=== PATIENT | male | born 1990 | race Two or more races ===

== ENCOUNTER 2025-05-21 12:49 | Observation (INO) ==
[2025-05-21 13:04] VITALS: BMI 33.7
[2025-05-21 13:19] LABS: BLOOD/HEMOGLOBIN,URINE 1+ (NEGATIVE); LEUKOCYTE ESTERASE ,URINE NEGATIVE (NEGATIVE); NITRITES,URINE NEGATIVE (NEGATIVE)
[2025-05-21 13:22] LABS: MEAN PLATELET VOLUME 9.9 fL (7.4-11.0); RED CELL DISTRIBUTION WIDTH 13.0 % (11.6-16.5)
--- NOTE | 2025-05-21 13:29 | DR.HTN ---
HPI Time Seen Time Seen by Provider: 05/21/25 13:25 Primary Care Physician Primary Care Physician: nfd Complaints Chief Complaint Doctors Comments: Patient states he has been weak tired excessive urination over the last couple days. He states is not currently on any medications.The patient does not have a primary care provider. Chief Complaint:: Pt ambulatory to ED; pt states "I feel bad for a few days; I feel tired and weak; I drink alot of water and I pee alot". Pt denies any medical hx or that he is prescribed any medications; he doesn't have a PCP. Pt c/o "pressure in my head". Pt c/o exertional SOB that is better with rest. Self Treatment fo Chief Complaint: none Source History Provided: Patient Mode of Arrival Mode of Arrival: Ambulatory Timing Onset of Chief Complaint: 05/18/25 Severity What was the maximum recorded B/P?: 146/107 Context Treatment of HTN Prior to Arrival: No Rx for HTN meds Associated Signs and Symptoms HTN Associated Signs and Symptoms: Shortness of Breath PMH PMH Past Medical History: No Past Surgical History: No Surgical History: No History Family History History of Family Medical Conditions: No Social History Does any household member use tobacco: No Alcohol Use: Occasionally Do you use any recreational Drugs:: No Lives With: Spouse and Family Lives Where: Home Infectious screening In the last 2 months have you had wt loss of >10#?: NO Have you had fever, night sweats or hemotysis?: No Have you traveled outside the country in the last 6 months?: No Isolation: Standard ROS Review of Systems Constitutional: Fatigue and Other (This patient complaining of polyuria polydipsia and polyphasia and some weight lossAnd just feeling weak) Eyes: No Symptoms Reported ENTM: No Symptoms Reported Respiratoy: No Symptoms Reported Cardiovascular: No Symptoms Reported Gastrointestinal/Abdominal: No Symptoms Reported Genitourinary: Frequency Neurological: No Symptoms Reported Musculoskeletal: No Symptoms Reported Integumentary: No Symptoms Reported Hematologic/Lymphatic: No Symptoms Reported Endocrine: No Symptoms Reported Psychiatric: No Symptoms Reported All Other Systems: Reviewed and Negative PE Vital Signs Vitals: Vital Signs Pulse Rate 86 Pulse Rate 92 Pulse Rate 91 Pulse Rate 94 Pulse Rate 90 Pulse Rate 91 Pulse Rate 87 Pulse Rate 88 Pulse Rate 86 Pulse Rate 95 Pulse Rate 94 Pulse Rate 96 Pulse Rate 95 Pulse Rate 94 Pulse Rate 94 Pulse Rate 99 Pulse Rate 104 Pulse Rate 106 Pulse Rate 102 Blood Pressure 134/74 Blood Pressure 124/74 Blood Pressure 124/79 Blood Pressure 117/82 Blood Pressure 123/76 Blood Pressure 126/70 Blood Pressure 124/62 Blood Pressure 126/74 Blood Pressure 126/79 Blood Pressure 117/64 O2 Sat by Pulse Oximetry 97 O2 Sat by Pulse Oximetry 98 O2 Sat by Pulse Oximetry 97 O2 Sat by Pulse Oximetry 99 O2 Sat by Pulse Oximetry 98 O2 Sat by Pulse Oximetry 97 O2 Sat by Pulse Oximetry 98 O2 Sat by Pulse Oximetry 99 O2 Sat by Pulse Oximetry 98 O2 Sat by Pulse Oximetry 99 O2 Sat by Pulse Oximetry 98 O2 Sat by Pulse Oximetry 97 O2 Sat by Pulse Oximetry 96 O2 Sat by Pulse Oximetry 97 O2 Sat by Pulse Oximetry 96 O2 Sat by Pulse Oximetry 98 O2 Sat by Pulse Oximetry 97 O2 Sat by Pulse Oximetry 97 O2 Sat by Pulse Oximetry 96 General Limitations: No Limitations General Appearance: In Distress (moderate distress) Head Head Exam: Normal Inspection, Atraumatic and Normocephalic Eyes Eye exam: Normal Appearance, PERRL and EOMI ENT ENT Exam: Normal Oropharynx Neck Neck Exam: Normal Inspection, Full ROM and Trachea Midline Chest Chest Inspection: Normal Inspection and Symmetric Chest Wall Rise Respiratory Respiratory Exam: Normal Lung Sounds Bilat Respiratory Exam: Bilateral: Clear to Auscultation Cardiovascular Cardiovascular Exam: Regular Rate and Normal Rhythm Abdominal Exam Abdominal Exam: Normal Inspection, Normal Bowel Sounds and Soft Extremities Extremities Exam: Normal Inspection Back Back Exam: Normal Inspection and Full ROM Neurologic Neurological Exam: Alert, Oriented X3 and CN II-XII Intact Patient Oriented To: Person, Place and Time Speech: Fluid Speech Cranial Nerve Exam: EOM Function (II, III, IV, ): Normal Motor Strength - LUE: 4/5 Motor Strength - RUE: 4/5 Motor Strength - LLE: 4/5 Motor Strength - RLE: 4/5 Psychiatric Psychiatric Exam: Normal Affect Skin Skin Exam: Warm, Dry and Intact MDM Differential Diagnosis Differential Diagnosis Comment: IDDM,Diabetic Ketoacidosis COURSE Treatment Treatment: This patient main relative stable during the ER evaluation. We did do initial blood work on this patient and his blood sugar was 420 we did a serum acetone level which was small initially we did a urinalysis that showed plus for glucose +3 ketones +1 blood and +2 protein.The patient was initially given a 1 L bolus of normal saline and he was given 5 units of [place] are and the blood sugar came down initially to 305 after that and we continued given fluids he got another liter bolus of normal saline we will continue to monitor his fluids we did check another serum acetone probably after the 2 L of normal saline and he still was small levels of serum acetone his initial hemoglobin A1c was 11.5.The patient was told results of these labs and that he was at this time considered to be in diabetic ketoacidosis and probably would be needing some treatment in the ER initially and to be referred to observation for further for further treatment. 2023 we did speak to Dr. Segal also about this patient and he agreed to have the patient be admitted to him for this diagnosis.Dr. Parikh said just keep the patient on normal saline 125 cc an hour and do a sliding scale insulin.This patient was told of the intent to admit and was agreeable to the admission. ROR Labs Reviewed Laboratory Results Reviewed?: Yes 05/21/25 13:07 05/21/25 13:07 Laboratory: WBC 8.9 X10^3/uL (3.6-10.0) 05/21/25 13:07 RBC 5.56 X10^6/uL (4.7-6.0) 05/21/25 13:07 Hgb 16.9 g/dL (13.5-18.0) 05/21/25 13:07 Hct 47.3 % (42.0-54.0) 05/21/25 13:07 MCV 85.1 fL (80.0-100.0) 05/21/25 13:07 MCH 30.4 pg (27.0-34.0) 05/21/25 13:07 MCHC 35.7 g/dL (33.0-35.0) H 05/21/25 13:07 RDW 13.0 % (11.6-16.5) 05/21/25 13:07 Plt Count 185 X10^3/uL (150.0-450.0) 05/21/25 13:07 MPV 9.9 fL (7.4-11.0) 05/21/25 13:07 Neut % (Auto) 65.6 % (42.0-75.0) 05/21/25 13:07 Lymph % (Auto) 25.3 % (21.0-51.0) 05/21/25 13:07 [place] % (Auto) 6.1 % (0.0-13.0) 05/21/25 13:07 Eos % (Auto) 1.8 % (0.9-2.9) 05/21/25 13:07 Baso % (Auto) 1.2 % (0.2-1.0) H 05/21/25 13:07 Neut # (Auto) 5.8 x10^3/uL (2.2-4.8) H 05/21/25 13:07 Lymph # (Auto) 2.2 X10^3/uL (1.3-2.9) 05/21/25 13:07 [place] # (Auto) 0.5 x10^3/uL (0.3-0.8) 05/21/25 13:07 Eos # (Auto) 0.2 x10^3/uL (0.0-0.2) 05/21/25 13:07 Baso # (Auto) 0.1 X10^3/uL (0.0-0.1) 05/21/25 13:07 Absolute Nucleated RBC 0.1 /100WBC 05/21/25 13:07 Sodium 136 mmol/L (136-145) 05/21/25 13:07 Corrected Sodium 144 mmol/L (136-145) 05/21/25 13:07 Potassium 3.8 mmol/L (3.5-5.1) 05/21/25 13:07 Chloride 99 mmol/L (98-107) 05/21/25 13:07 Carbon Dioxide 19.8 mmol/L (21-32) L 05/21/25 13:07 BUN 11 mg/dL (7-18) 05/21/25 13:07 Creatinine 0.82 mg/dL (0.70-1.30) 05/21/25 13:07 Est GFR (MDRD) Af Amer > 60 (>60) 05/21/25 13:07 Est GFR (MDRD) Non-Af > 60 (>60) 05/21/25 13:07 Glucose 420 mg/dL (65-99) H 05/21/25 13:07 POC Glucose (mg/dL) 257 mg/dL (65-99) H 05/21/25 17:18 Hemoglobin A1c 11.5 % 05/21/25 13:07 Calcium 8.7 mg/dL (8.5-10.1) 05/21/25 13:07 Corrected Calcium TNP 05/21/25 13:07 Total Bilirubin 1.00 mg/dL (0.2-1.0) 05/21/25 13:07 AST 75 Units/L (15-37) H 05/21/25 13:07 ALT 197 Units/L (12-78) H 05/21/25 13:07 Alkaline Phosphatase 223 Units/L (46-116) H 05/21/25 13:07 Total Protein 7.5 g/dL (6.4-8.2) 05/21/25 13:07 Albumin 4.4 g/dL (3.4-5.0) 05/21/25 13:07 Globulin 3.1 g/dL (2.5-4.5) 05/21/25 13:07 Albumin/Globulin Ratio 1.4 Ratio (1.1-2.1) 05/21/25 13:07 Specimen Type Clean catch urine 05/21/25 13:02 Urine Color Yellow (YELLOW) 05/21/25 13:02 Urine Appearance Clear (CLEAR) 05/21/25 13:02 Urine pH 5.0 (5.0 - 8.0) 05/21/25 13:02 Ur Specific [place] 1.015 (1.000-1.030) 05/21/25 13:02 Urine Protein 2+ (NEGATIVE) 05/21/25 13:02 Urine Glucose (UA) 4+ (NEGATIVE) 05/21/25 13:02 Urine Ketones 3+ (NEGATIVE) 05/21/25 13:02 Urine Blood 1+ (NEGATIVE) 05/21/25 13:02 Urine Nitrite Negative (NEGATIVE) 05/21/25 13:02 Urine Bilirubin Negative (NEGATIVE) 05/21/25 13:02 Urine Urobilinogen Normal (NORMAL) 05/21/25 13:02 Ur Leukocyte Esterase Negative (NEGATIVE) 05/21/25 13:02 Urine RBC 0-2 /HPF (0-3) 05/21/25 13:02 Urine WBC 0-2 /HPF (0-5) 05/21/25 13:02 Ur Squamous Epith Cells Rare /HPF (NEGATIVE) 05/21/25 13:02 Urine Bacteria Negative /HPF (NEGATIVE) 05/21/25 13:02 Ur Culture Indicated? No/not indicated 05/21/25 13:02 Acetone, Semi-Quant Small (NEGATIVE) H 05/21/25 17:35 Opioid Opioid Risk Tool Age (Pavel box if 16-45): Yes History of Preadolescent Sexual Abuse: No Total: 1 Total Score Risk Category: Low Risk Copyright: Thaddeus GAYTAN predicting aberrant behaviors Discharge Plan Diagnosis Discharge Problem: Diabetic keto-acidosis Discharge Plan Patient Disposition: ADMITTED INPATIENT Condition: Stable Prescriptions: No Action [facility] Concerns: Post Hospitalization: new medications and changes needed to prevent readmission or further decline. Pt educated and given instructions on all concerns. Plan of Treatment: Continue with present treatment and follow up plan. Pt is to keep follow up appointment as instructed and take medications as ordered. Orders to Discharge Patient Discharge Orders: Transfer (Routine); Ordered 05/21/25 Ordered By: Cy Steven Follow ups/Referrals Follow ups/Referrals: NFD,None [Primary Care Provider] - 3 days Instructions Instructions: Insulin Treatment for Diabetes Mellitus, Diabetes Mellitus and Skin Care, Type 2 Diabetes Mellitus, Self-Care, Adult, [id number], Regular Insulin injection Stand Alone Forms: Find Help Web Site, Post Hospital Follow Up Care Print Language: [place]
[2025-05-21 13:31] LABS: COR NA(FOR HYPERGLY) 144 mmol/L (136-145); CREATININE 0.82 mg/dL (0.70-1.30); eGFR NON BLACK RACES > 60 (>60)
[2025-05-21] MEDS ORDERED: NS 1,000 ML IV 1,000 ML ONE (13:32)
[2025-05-21 13:35] LABS: APPEARANCE,URINE CLEAR (CLEAR); SQUAMOUS EPITHELIAL CELL,UR RARE /HPF (NEGATIVE)
[2025-05-21] MEDS: NS 1,000 ML IV 1,000 ML IV ONE ×2 (13:36→16:11)
[2025-05-21] MEDS: NovoLIN R (or HumuLIN R) IV ONE (14:40)
[2025-05-21] MEDS: NS 1,000 ML IV 1,000 ML IV SCH (23:04)
[2025-05-22] MEDS: NovoLIN R (or HumuLIN R) SUBCUT PRN (05:43)
[2025-05-22 06:01] LABS: MEAN PLATELET VOLUME 10.5 fL (7.4-11.0); RED CELL DISTRIBUTION WIDTH 12.9 % (11.6-16.5)
[2025-05-22 06:12] LABS: COR NA(FOR HYPERGLY) 144 mmol/L (136-145); CREATININE 0.69 mg/dL (0.70-1.30); eGFR NON BLACK RACES > 60 (>60)
[2025-05-22] MEDS: OMNIPAQUE 350 mg/mL 100 mL BTL IVP NR (08:07)
[2025-05-22] MEDS: ACTOS PO SCH (08:23)
--- NOTE | 2025-05-22 08:25 | CT ---
EXAMINATION: ABDCMEN/PELVIS WITH CON HISTORY: acute hepatitis; COMPARISON: CT abdomen 01/20/2024 TECHNIQUE: Contiguous axial CT images of the abdomen and pelvis following intravenous contrast. Images reviewed in the axial imaging plane with reformatted sagittal and coronal images.The above CT scan was done with automated exposure control and the mA and kV was adjusted to obtain quality images according to patient size. FINDINGS: The liver measures 24 by 18 by 21 cm. There is a nonspecific subtle region of heterogeneous enhancement measuring 2 x 1.7 x 1.8 cm within the liver adjacent to the gallbladder fossa. Gallbladder mildly distended. No bile duct dilatation. Pancreas, spleen, adrenal glands appear intact. Abdominal aorta tapers normally. Kidneys normal size and position. No hydronephrosis. Small and large bowels are normal caliber. Details limited by lack of oral contrast. Occasional colonic diverticuli. Mild amount of bowel-gas and feces. No evidence of appendicitis. Stomach contains a small amount of air in fluid. No ascites. Urinary bladder mildly distended with urine. Prostate gland measures 5 cm transverse dimension. Seminal vesicles appear intact. Osseous structures appear intact. Pulmonary bases are clear. IMPRESSION: Mild hepatomegaly. Nonspecific subtle region of heterogeneous enhancement within the liver adjacent to the gallbladder fossa. Recommend follow-up MRI of the abdomen without and with IV contrast following the hepatic mass imaging protocol. THIS IS AN ELECTRONICALLY VERIFIED FINAL REPORT 05/22/2025 8:22 AM - Electronically signed by Sima Britton MD
--- NOTE | 2025-05-22 15:39 | DR.H&P ---
H&P History & Physical for Day of: H&P Date: 05/22/25 Chief Complaint Chief Complaint: blurry vision History of Present Illness History of Present Illness: Patient presented to the ER yesterday with months of increased thirst and increased urination. Has not been feeling well for a while. No family history of diabetes and denies blurry vision, nausea, vomiting, or diarrhea over the last couple of days. ER workup was consistent with new onset diabetes and hyperglycemia. Ketones in urine and and blood. Anion gap was present but no blood gas obtained. Currently reports he is doing better this morning. He is tolerating a diet. Did had elevated liver enzymes in the ER with CAT scan ordered this morning. CT findings concerning for liver mass adjacent to the gallbladder. No pancreatitis bladder was mildly distended without inflammation or infection. PMH: Denies PSH: Denies Family history: Denies, reports all first-degree relatives are living and healthy. Social: , local resident. Denies tobacco or illicit drug use. Admits to daily alcohol use. ROS: 12 point ROS negative except per above. PE: Well-developed, well-nourished, obese male in no acute distress. Head NCAT, EOMI, hearing intact conversation. Heart regular rate and rhythm, lungs are clear, speech is strong, bowel sounds present. Belly is soft and nontender. No jaundice or rash/bruising appreciated. Moves all extremities well with no edema of his face, hands, or feet. Past Medical History Additional Medical History: denies Past Surgical History Surgical History: No History Additional Surgical History: denies Social History Does patient currently use any type of tobacco product: No Type of Tobacco Use: None Does any household member use tobacco: No Alcohol Use: DAILY Drug Use: None Medications Home Medications: Home Medications Medication Instructions Recorded Confirmed Type NK 05/21/25 05/21/25 History Allergies Allergies Allergy/AdvReac Type Severity Reaction Status Date / Time No Known Allergies Allergy Verified 05/21/25 13:13 Labs 05/22/25 05:20 05/22/25 05:20 Labs: Laboratory WBC 6.0 X10^3/uL (3.6-10.0) 05/22/25 05:20 RBC 4.82 X10^6/uL (4.7-6.0) 05/22/25 05:20 Hgb 14.3 g/dL (13.5-18.0) D 05/22/25 05:20 Hct 41.4 % (42.0-54.0) L 05/22/25 05:20 MCV 85.9 fL (80.0-100.0) 05/22/25 05:20 MCH 29.6 pg (27.0-34.0) 05/22/25 05:20 MCHC 34.4 g/dL (33.0-35.0) 05/22/25 05:20 RDW 12.9 % (11.6-16.5) 05/22/25 05:20 Plt Count 160 X10^3/uL (150.0-450.0) 05/22/25 05:20 MPV 10.5 fL (7.4-11.0) 05/22/25 05:20 Neut % (Auto) 47.7 % (42.0-75.0) 05/22/25 05:20 Lymph % (Auto) 39.2 % (21.0-51.0) 05/22/25 05:20 [place] % (Auto) 8.2 % (0.0-13.0) 05/22/25 05:20 Eos % (Auto) 4.1 % (0.9-2.9) H 05/22/25 05:20 Baso % (Auto) 0.8 % (0.2-1.0) 05/22/25 05:20 Neut # (Auto) 2.9 x10^3/uL (2.2-4.8) 05/22/25 05:20 Lymph # (Auto) 2.4 X10^3/uL (1.3-2.9) 05/22/25 05:20 [place] # (Auto) 0.5 x10^3/uL (0.3-0.8) 05/22/25 05:20 Eos # (Auto) 0.2 x10^3/uL (0.0-0.2) 05/22/25 05:20 Baso # (Auto) 0.1 X10^3/uL (0.0-0.1) 05/22/25 05:20 Absolute Nucleated RBC 0.0 /100WBC 05/22/25 05:20 Sodium 139 mmol/L (136-145) 05/22/25 05:20 Corrected Sodium 144 mmol/L (136-145) 05/22/25 05:20 Potassium 3.7 mmol/L (3.5-5.1) 05/22/25 05:20 Chloride 105 mmol/L (98-107) 05/22/25 05:20 Carbon Dioxide 21.7 mmol/L (21-32) 05/22/25 05:20 BUN 10 mg/dL (7-18) 05/22/25 05:20 Creatinine 0.69 mg/dL (0.70-1.30) L 05/22/25 05:20 Est GFR (MDRD) Af Amer > 60 (>60) 05/22/25 05:20 Est GFR (MDRD) Non-Af > 60 (>60) 05/22/25 05:20 Glucose 306 mg/dL (65-99) H 05/22/25 05:20 POC Glucose (mg/dL) 315 mg/dL (65-99) H 05/22/25 05:15 Hemoglobin A1c 11.5 % 05/21/25 13:07 Calcium 8.3 mg/dL (8.5-10.1) L 05/22/25 05:20 Corrected Calcium TNP 05/22/25 05:20 Total Bilirubin 0.80 mg/dL (0.2-1.0) 05/22/25 05:20 AST 60 Units/L (15-37) H 05/22/25 05:20 ALT 180 Units/L (12-78) H 05/22/25 05:20 Alkaline Phosphatase 146 Units/L (46-116) H 05/22/25 05:20 Total Protein 6.2 g/dL (6.4-8.2) L 05/22/25 05:20 Albumin 3.5 g/dL (3.4-5.0) 05/22/25 05:20 Globulin 2.7 g/dL (2.5-4.5) 05/22/25 05:20 Albumin/Globulin Ratio 1.3 Ratio (1.1-2.1) 05/22/25 05:20 Specimen Type Clean catch urine 05/21/25 13:02 Urine Color Yellow (YELLOW) 05/21/25 13:02 Urine Appearance Clear (CLEAR) 05/21/25 13:02 Urine pH 5.0 (5.0 - 8.0) 05/21/25 13:02 Ur Specific [place] 1.015 (1.000-1.030) 05/21/25 13:02 Urine Protein 2+ (NEGATIVE) 05/21/25 13:02 Urine Glucose (UA) 4+ (NEGATIVE) 05/21/25 13:02 Urine Ketones 3+ (NEGATIVE) 05/21/25 13:02 Urine Blood 1+ (NEGATIVE) 05/21/25 13:02 Urine Nitrite Negative (NEGATIVE) 05/21/25 13:02 Urine Bilirubin Negative (NEGATIVE) 05/21/25 13:02 Urine Urobilinogen Normal (NORMAL) 05/21/25 13:02 Ur Leukocyte Esterase Negative (NEGATIVE) 05/21/25 13:02 Urine RBC 0-2 /HPF (0-3) 05/21/25 13:02 Urine WBC 0-2 /HPF (0-5) 05/21/25 13:02 Ur Squamous Epith Cells Rare /HPF (NEGATIVE) 05/21/25 13:02 Urine Bacteria Negative /HPF (NEGATIVE) 05/21/25 13:02 Ur Culture Indicated? No/not indicated 05/21/25 13:02 Acetone, Semi-Quant Small (NEGATIVE) H 05/21/25 22:25 Physical Exam Vital Signs: Vital Signs Temperature 98.0 F Temperature 98.1 F Pulse Rate [Left] 75 Pulse Rate [Left] 82 Respiratory Rate 18 Respiratory Rate 18 Blood Pressure [Left Arm] 104/76 Blood Pressure [Left Arm] 134/80 O2 Sat by Pulse Oximetry 98 O2 Sat by Pulse Oximetry 98 Assessment/Plan (1) Diabetic keto-acidosis: Qualifiers: Diabetes mellitus complication detail: without coma Diabetes mellitus type: type 2 Qualified Code(s): E11.10 - Type 2 diabetes mellitus with ketoacidosis without coma Narrative Support Text: Monitor labs closely. Continue sliding scale insulin and IV fluids. Start glipizide and Actos. Need to get an MRI with and without contrast of the abdomen to look more closely at the liver. Status: Acute (2) Newly diagnosed diabetes: Status: Acute (3) Gastroenteritis: Status: Acute (4) Mixed hyperlipidemia: Status: Acute (5) Type 2 diabetes mellitus with hyperglycemia: Qualifiers: Diabetes mellitus skilled nursing insulin use: without skilled nursing use Q ualified Code(s): E11.65 - Type 2 diabetes mellitus with hyperglycemia Status: Acute (6) Acute hepatitis: Status: Acute (7) Liver mass: Status: Acute
[2025-05-22] MEDS: GLUCOTROL PO SCH (17:02)
[2025-05-22] MEDS: SNACK - Diabetic Appropriate PO SCH ×2 (20:34)
--- NOTE | 2025-05-22 22:40 | RAD ---
EXAM: CHEST HISTORY: SOB on exertion; COMPARISON: None. TECHNIQUE: Frontal view of the chest was submitted for interpretation. FINDINGS: No evidence for acute infiltrates, pleural effusion, or pneumothorax. Heart size and pulmonary vasculature are within normal limits. IMPRESSION: No evidence of acute cardiopulmonary pathology. THIS IS AN ELECTRONICALLY VERIFIED FINAL REPORT 05/22/2025 10:37 PM - Electronically signed by Cliff Lomax DO
[2025-05-23 07:05] LABS: MEAN PLATELET VOLUME 10.1 fL (7.4-11.0); RED CELL DISTRIBUTION WIDTH 12.9 % (11.6-16.5)
[2025-05-23] MEDS: NS 500 ML IV 500 ML IV ONE (07:06)
[2025-05-23] MEDS: OMNIPAQUE 350 mg/mL 100 mL BTL 100 ML ONE (07:07)
[2025-05-23] MEDS: NS 100 ML IV 100 ML ONE (07:07)
[2025-05-23 07:17] LABS: COR NA(FOR HYPERGLY) 139 mmol/L (136-145); CREATININE 0.54 mg/dL (0.70-1.30); eGFR NON BLACK RACES > 60 (>60)
--- NOTE | 2025-05-23 13:32 | NOTE.SOAP ---
Soap Note Note for Day of Date of Exam: 05/23/25 Subjective Data Subjective Data: No acute events overnight. Vitals and labs overall stable. Sugars stable. Patient is willing to stay for an MRI tomorrow. Objective Data Objective Data: Well-developed, well-nourished, obese male in no acute distress. Head NCAT. Heart regular rate and rhythm. Belly is soft and nontender with bowel sounds present. No jaundice or scleral icterus. Lungs are clear with strong speech. Assessment Assessment: New DM2 with hyperglycemia Liver mass Hepatic steatosis Simple obesity Plan Plan: MRI tomorrow. Increase glipizide. Continue SSI. Consider adding on metformin after MRI. Likely need to discharge with short acting insulin for as needed use.
[2025-05-23] MEDS: GLUCOTROL PO SCH (16:23)
[2025-05-24 06:02] LABS: MEAN PLATELET VOLUME 10.5 fL (7.4-11.0); RED CELL DISTRIBUTION WIDTH 13.1 % (11.6-16.5)
[2025-05-24 06:18] LABS: COR CA(FOR HYPOALB) 9.1 mg/dL (8.5-10.1); COR NA(FOR HYPERGLY) 142 mmol/L (136-145); CREATININE 0.55 mg/dL (0.70-1.30); eGFR NON BLACK RACES > 60 (>60)
--- NOTE | 2025-05-24 07:24 | PCM.DCPLAN ---
DISCHARGE SUMMARY Admission Date Date of Admission: 05/21/25 Discharge Date Discharge Date: 05/24/25 Admission Diagnoses (1) Diabetic keto-acidosis: Status: Acute (2) Newly diagnosed diabetes: Status: Acute (3) Gastroenteritis: Status: Acute (4) Mixed hyperlipidemia: Status: Acute (5) Type 2 diabetes mellitus with hyperglycemia: Status: Acute (6) Acute hepatitis: Status: Acute (7) Liver mass: Status: Ruled-out (8) Metabolic dysfunction-associated fatty liver disease (MAFLD): Status: Acute Discharge Medications Discharge Medications: Home Medication List NK 05/21/25 [History] Prescriptions: Hospital Course Vital Signs: Vital Signs Temperature 97.8 F Temperature 97.9 F Pulse Rate [Left] 74 Pulse Rate [Left] 72 Respiratory Rate 19 Respiratory Rate 21 Blood Pressure [Right Arm] 129/75 Blood Pressure [Right Arm] 135/79 O2 Sat by Pulse Oximetry 98 O2 Sat by Pulse Oximetry 98 Latest Lab Results: Laboratory Last Values WBC 6.0 X10^3/uL (3.6-10.0) 05/24/25 05:04 RBC 4.88 X10^6/uL (4.7-6.0) 05/24/25 05:04 Hgb 14.4 g/dL (13.5-18.0) 05/24/25 05:04 Hct 41.5 % (42.0-54.0) L 05/24/25 05:04 MCV 85.2 fL (80.0-100.0) 05/24/25 05:04 MCH 29.6 pg (27.0-34.0) 05/24/25 05:04 MCHC 34.8 g/dL (33.0-35.0) 05/24/25 05:04 RDW 13.1 % (11.6-16.5) 05/24/25 05:04 Plt Count 171 X10^3/uL (150.0-450.0) 05/24/25 05:04 MPV 10.5 fL (7.4-11.0) 05/24/25 05:04 Neut % (Auto) 51.0 % (42.0-75.0) 05/24/25 05:04 Lymph % (Auto) 33.8 % (21.0-51.0) 05/24/25 05:04 [place] % (Auto) 8.7 % (0.0-13.0) 05/24/25 05:04 Eos % (Auto) 5.8 % (0.9-2.9) H 05/24/25 05:04 Baso % (Auto) 0.7 % (0.2-1.0) 05/24/25 05:04 Neut # (Auto) 3.0 x10^3/uL (2.2-4.8) 05/24/25 05:04 Lymph # (Auto) 2.0 X10^3/uL (1.3-2.9) 05/24/25 05:04 [place] # (Auto) 0.5 x10^3/uL (0.3-0.8) 05/24/25 05:04 Eos # (Auto) 0.3 x10^3/uL (0.0-0.2) H 05/24/25 05:04 Baso # (Auto) 0.0 X10^3/uL (0.0-0.1) 05/24/25 05:04 Absolute Nucleated RBC 0.1 /100WBC 05/24/25 05:04 Sodium 139 mmol/L (136-145) 05/24/25 05:04 Corrected Sodium 142 mmol/L (136-145) 05/24/25 05:04 Potassium 3.7 mmol/L (3.5-5.1) 05/24/25 05:04 Chloride 104 mmol/L (98-107) 05/24/25 05:04 Carbon Dioxide 26.6 mmol/L (21-32) 05/24/25 05:04 BUN 9 mg/dL (7-18) 05/24/25 05:04 Creatinine 0.55 mg/dL (0.70-1.30) L 05/24/25 05:04 Est GFR (MDRD) Af Amer > 60 (>60) 05/24/25 05:04 Est GFR (MDRD) Non-Af > 60 (>60) 05/24/25 05:04 Glucose 226 mg/dL (65-99) H 05/24/25 05:04 POC Glucose (mg/dL) 226 mg/dL (65-99) H 05/24/25 05:13 Hemoglobin A1c 11.5 % 05/21/25 13:07 Calcium 8.5 mg/dL (8.5-10.1) 05/24/25 05:04 Corrected Calcium 9.1 mg/dL (8.5-10.1) 05/24/25 05:04 Magnesium 1.8 mg/dL (2.0-2.9) L 05/24/25 05:04 Total Bilirubin 0.70 mg/dL (0.2-1.0) 05/24/25 05:04 AST 57 Units/L (15-37) H 05/24/25 05:04 ALT 176 Units/L (12-78) H 05/24/25 05:04 Alkaline Phosphatase 122 Units/L (46-116) H 05/24/25 05:04 Total Protein 6.0 g/dL (6.4-8.2) L 05/24/25 05:04 Albumin 3.3 g/dL (3.4-5.0) L 05/24/25 05:04 Globulin 2.7 g/dL (2.5-4.5) 05/24/25 05:04 Albumin/Globulin Ratio 1.2 Ratio (1.1-2.1) 05/24/25 05:04 Specimen Type Clean catch urine 05/21/25 13:02 Urine Color Yellow (YELLOW) 05/21/25 13:02 Urine Appearance Clear (CLEAR) 05/21/25 13:02 Urine pH 5.0 (5.0 - 8.0) 05/21/25 13:02 Ur Specific [place] 1.015 (1.000-1.030) 05/21/25 13:02 Urine Protein 2+ (NEGATIVE) 05/21/25 13:02 Urine Glucose (UA) 4+ (NEGATIVE) 05/21/25 13:02 Urine Ketones 3+ (NEGATIVE) 05/21/25 13:02 Urine Blood 1+ (NEGATIVE) 05/21/25 13:02 Urine Nitrite Negative (NEGATIVE) 05/21/25 13:02 Urine Bilirubin Negative (NEGATIVE) 05/21/25 13:02 Urine Urobilinogen Normal (NORMAL) 05/21/25 13:02 Ur Leukocyte Esterase Negative (NEGATIVE) 05/21/25 13:02 Urine RBC 0-2 /HPF (0-3) 05/21/25 13:02 Urine WBC 0-2 /HPF (0-5) 05/21/25 13:02 Ur Squamous Epith Cells Rare /HPF (NEGATIVE) 05/21/25 13:02 Urine Bacteria Negative /HPF (NEGATIVE) 05/21/25 13:02 Ur Culture Indicated? No/not indicated 05/21/25 13:02 Acetone, Semi-Quant Small (NEGATIVE) H 05/21/25 22:25 Hospital Course: Patient admitted with weeks of polyuria, polydipsia, abdominal discomfort, nausea, and feeling unwell. Diagnosed in the ER with diabetes. He was admitted on fluids and insulin. He did respond slowly and steadily. Actos and glipizide were added on. Metformin was added on prior to discharge. He did undergo an MRI with and without contrast of the abdomen due to concerns on the CT in the gallbladder fossa. CT in 2023, CT this , and MRI this weekend are all consistent with fatty liver disease. He will need follow-up with a primary care after discharge in 1-2 weeks. He has been discharged on glipizide, metformin, and pioglitazone for 30 days. He will need monitoring of his fatty liver disease. Discharged home in improved, stable condition. PE: Well-developed, well-nourished, obese male in no acute distress. Head NCAT, hearing grossly normal, sclera nonicterus, EOMI. Heart regular rate and rhythm. Lungs are clear with strong speech. Belly is protuberant but soft with bowel sounds present. No swelling of his extremities.
[2025-05-24] MEDS: MULTIHANCE INJ VIAL IVP NR (10:40)
[2025-05-24] MEDS ORDERED: MULTIHANCE INJ VIAL ONE (10:45)
[2025-05-24 12:11] VITALS: BP 130/83; PULSE 88; RESP 17; TEMP 97.8; O2SAT 97
--- NOTE | 2025-05-24 13:00 | MRI ---
EXAM: MRI ABDOMEN WITH AND WITHOUT CONTRAST HISTORY: liver mass; COMPARISON: CT dated 05/22/2025 and 01/19/2025. TECHNIQUE: Using a phased-array coil, MRI of the abdomen was obtained with and without contrast. Informed written consent was obtained from the patient prior to contrast administration. FINDINGS: Hepatic steatosis with diffuse signal loss on out of phase images. No suspicious enhancing liver lesions. No areas of abnormal washout on delayed postcontrast series. Patent portal vein, splenic vein, and SMV. Normal gallbladder. No biliary dilatation or biliary filling defects. Spleen, pancreas, adrenals, and kidneys are normal. Normal caliber abdominal aorta. No abnormally distended bowel loops. No ascites. IMPRESSION: 1. Negative for liver mass. Diffuse hepatic steatosis. 2. Normal gallbladder. No biliary dilatation. THIS IS AN ELECTRONICALLY VERIFIED FINAL REPORT 05/24/2025 12:46 PM - Electronically signed by Isai Barreto MD
[2025-05-24] MEDS ORDERED: GLUCOPHAGE PO SCH (17:00)
== END 2025-05-24 14:20 | disposition home or self-care (01) ==
LOC: ER 12:49 → MED/SURG 12:49
PROVIDERS: ADMIT Family Medicine; ATTEND Family Medicine
DX: R07.89 Other chest pain; R82.4 Acetonuria; R80.9 Proteinuria, unspecified; K76.0 Fatty (change of) liver, not elsewhere classified; B17.9 Acute viral hepatitis, unspecified; R79.89 Other specified abnormal findings of blood chemistry; E11.10 Type 2 diabetes mellitus with ketoacidosis without coma; K52.89 Other specified noninfective gastroenteritis and colitis; R16.0 Hepatomegaly, not elsewhere classified; R31.9 Hematuria, unspecified; R10.84 Generalized abdominal pain; E78.2 Mixed hyperlipidemia; E11.65 Type 2 diabetes mellitus with hyperglycemia